=== PATIENT | female | born 1985 | race Caucasian/White ===

== ENCOUNTER 2021-06-27 20:33 | Emergency (ER) | payer OTHER, SELFPAY ==
--- NOTE | ~2021-06-27 | XR_ITS ---
EXAMINATION: XR femur RT min 2V DATE: 06/27/2021 23:56 INDICATION: Right thigh pain. TECHNIQUE: 2 views of right femur on 4 radiographs were obtained. COMPARISON: None. FINDINGS: Bone alignment is normal. No fracture. There is patchy and serpiginous sclerosis in distal femur and proximal tibia. Joint spaces are normal. There are surgical clips in right inguinal region. No knee joint effusion. IMPRESSION: 1. Sclerosis in distal femur and proximal tibia, consistent with osteonecrosis. Reviewed, dictated and finalized at location A.
--- NOTE | ~2021-06-27 | XR_ITS ---
EXAMINATION: XR knee RT min 4V DATE: 06/27/2021 23:56 INDICATION: Right knee pain. TECHNIQUE: 4 views of right knee were obtained. COMPARISON: None. FINDINGS: Bone alignment is normal. No fracture. There is patchy and serpiginous sclerosis in distal femur and proximal tibia. Joint spaces are normal. No knee joint effusion. IMPRESSION: 1. Sclerosis in distal femur and proximal tibia, consistent with osteonecrosis. Reviewed, dictated and finalized at location A.
[2021-06-27 21:21] VITALS: BP 147/102; PULSE 106; RESP 18; TEMP 36.1; O2SAT 100
--- NOTE | 2021-06-27 22:46 | ED.EXTPRO ---
HPI - Extremity Problem General Chief complaint: Extremity Problem,Nontraumatic Stated complaint: R. Knee pain Time Seen by Provider: 06/27/21 22:44 Source: patient Mode of arrival: ambulatory Limitations: no limitations History of Present Illness HPI Narrative: The patient is a 35 yo female history of melanoma in the right lower extremity (thigh) and osteonecrosisof the right lower extremity/right knee, presenting for evaluation of right knee pain. Patient denies recent trauma. Pain has been present over past two weeks. Pain is worsened with ambulation. Patient denies redness or swelling. No change in range of motion. Pt denies fever or chills. Pt had melanoma in 2012, treated with interferon. Pt has been told she has necrosis of her knee and will eventually require a knee replacement. Patient was seen by her PCP who prescribed voltran and meloxicam with minimal improvement in her symptoms. Patient does not closely follow with oncology. She has an MRI of her knee scheduled in two weeks. Patient denies fever or chills.No numbness or weakness. Related Data Home Medications Medication Instructions Recorded Confirmed Imitrex 06/27/21 sertraline [Zoloft] mg 06/27/21 Allergies Allergy/AdvReac Type Severity Reaction Status Date / Time No Known Allergies Allergy Verified 06/27/21 22:11 Review of Systems Review of Systems: CONSTITUTIONAL: Denies fever, chills, or sweats. EYES: Denies visual changes, redness, or discharge. ENT: Denies rhinorrhea, congestion, sore throat, or otalgia. CARDIOVASCULAR: Denies chest pain, palpitations, or edema. RESPIRATORY: Denies cough or dyspnea. GASTROINTESTINAL: Denies abdominal pain, nausea, vomiting, or diarrhea. GENITOURINARY: Denies dysuria or hematuria. SKIN: Denies rash or itching. MUSCULOSKELETAL: Denies back pain, reports right knee pain NEUROLOGIC: Denies headache, numbness, or weakness. [facility] Social History Social History (Updated 06/27/21 @ 23:29 by Neelam Lozano MD) Smoking status: Never smoker Alcohol intake: never Substance use: never Living arrangements: with family Gender identity (if verbalized by the patient): Female Exam Narrative: GENERAL: Awake, alert, conversant HEAD: Normocephalic, atraumatic. EYES: PERRLA and EOMI. ENT: Nares clear, no rhinorrhea or epistaxis. Mucous membranes moist. NECK: Supple. CHEST: No respiratory distress, breathing even and non labored HEART: Regular rate, sinus rhythm ABDOMEN:Non distended, non tender EXTREMITIES: Normal range of motion. No edema. Full range of motion of the right knee without limitation. Stable valgus/varus. No tenderness on exam. Patella is non tender. No erythema or induration. No edema. SKIN: Warm, dry, no rash. 10 cm well healed surgical incision, right thigh. NEURO:No focal deficits. Alert and oriented x3 Course Vital Signs Vital signs: Vital Signs Temperature 36.1 C L 06/27/21 21:21 Pulse Rate 106 H 06/27/21 21:21 Respiratory Rate 18 06/27/21 21:21 Blood Pressure 147/102 H 06/27/21 21:21 Pulse Oximetry 100 06/27/21 21:21 Temperature 36.1 C L 06/27/21 21:21 Pulse Rate 79 06/28/21 01:21 Respiratory Rate 16 06/28/21 01:21 Blood Pressure 118/90 06/28/21 01:21 Pulse Oximetry 97 06/28/21 01:21 MDM - Extremity (Nontraumatic) MDM Narrative Medical decision making narrative: Patient presenting for evaluation of gradually worsening, atraumatic right knee pain. Patient has full active range of motion without limitation. No erythema or induration. No infectious type symptoms based on exam. Septic arthritis seems very unlikely given no systemic symptoms, no fever, normal range of motion. IV access obtained and labs are drawn. X-ray with evidence of chronic scarring, osteonecrosis. Patient without evidence of mass or fracture. No lucencies seen on radiographic imaging patient has mild leukocytosis. No electrolyte derangement. Very slight elevation in ESR with
[2021-06-28 01:21] VITALS: BP 118/90; PULSE 79; RESP 16; O2SAT 97
[2021-06-28 01:31] LABS: Basophils Percent Auto 0.4 % (0.2-1.2); Eosinophils Absolute Auto 0.6 K/mm3 (0-0.3); Eosinophils Percent Auto 5.6 % (0-4.4); Hematocrit 42.3 % (37.0-47.0); Hemoglobin 14.4 g/dL (12.0-15.0); Immature Granulocyte Absolute 0.03 K/mm3 (0.00-0.031); Immature Granulocyte Percent A 0.3 % (0-0.5); Lymphocytes Absolute Auto 6.16 K/mm3 (0.9-3.2); Lymphocytes Percent Auto 55.8 % (18.3-44.2); Mean Corpuscular Volume 96.8 fl (80-100); Mean Platelet Volume 10.7 fl (7.4-10.4); Monocytes Absolute Auto 1.1 K/mm3 (0.1-0.6); Monocytes Percent Auto 10.2 % (2.6-8.5); Neutrophils Absolute Auto 3.1 K/mm3 (1.3-6.7); Neutrophils Percent Auto 27.7 % (45.5-73.1); Platelet Count Result 330 k/mm3 (150-375); Red Blood Count 4.37 M/mm3 (4.2-5.4); Red Cell Distribution Width 13.7 % (11.5-14.5)
[2021-06-28 01:41] LABS: Alkaline Phosphatase 83 U/L (38-126); Anion Gap 9 mmol/L (8-16); Blood Urea Nitrogen 12 mg/dL (7-17); Calcium 9.1 mg/dL (8.4-10.2); Carbon Dioxide 26 mmol/L (22-30); Chloride 104 mmol/L (98-107); Estimated CRCL calculation 101 ml/min; Estimated Glomerular Filt Rate > 60; Glucose 87 mg/dL (65-110); Lactate Dehydrogenase 365 U/L (313-618); Potassium 4.1 mmol/L (3.4-5.0); Sodium 139 mmol/L (137-145)
[2021-06-28 01:43] LABS: CRP < 0.5 mg/dL (<1.0)
[2021-06-28 01:46] LABS: D Dimer 0.64 ug/mL (<0.48)
[2021-06-28 02:13] LABS: Erythrocyte Sedimentation Rate 24 mm/hr (0-20)
[2021-06-28 03:05] VITALS: BP 132/92; PULSE 74; RESP 16; O2SAT 99
[2021-06-28] MEDS: ENOXAPARIN 100 MG/ML SYRINGE 90 MG SUB-Q (03:05)
== END 2021-06-28 03:15 | disposition home or self-care (01) ==
PROVIDERS: Emergency Provider Emergency Medicine
DX: M25.561 Pain in right knee (principal); R79.1 Abnormal coagulation profile; Z85.820 Personal history of malignant melanoma of skin; M87.9 Osteonecrosis, unspecified
CPT/HCPCS: 36415; 73552; 73564; 80048; 83615; 84075; 85025; 85380; 85652; 86140; 96372; 99284; J1650

== ENCOUNTER 2021-06-28 07:25 | Outpatient (CLI) | payer OTHER, SELFPAY ==
--- NOTE | ~2021-06-28 | US_ITS ---
EXAMINATION: US venous doppler LE RT EXAM DATE: 06/28/2021 07:56 INDICATION: Elevated D Dimer,RLE Pain TECHNIQUE: Multiple grayscale, color flow and Doppler images of the right lower extremity deep venous system were obtained and reviewed. There is no prior study for comparison. FINDINGS: The right common femoral, femoral and profunda veins demonstrate normal color flow, respira tory variation, augmentation and compressibility. Compressibility, color flow confirmed within the r ight popliteal, posterior tibial, peroneal, and greater saphenous veins. IMPRESSION: 1. No right lower extremity deep venous thrombosis. Reviewed, dictated and finalized at location A.
== END 2021-06-28 07:26 | disposition home or self-care (01) ==
PROVIDERS: Visit Provider Emergency Medicine
DX: M79.661 Pain in right lower leg (principal)
CPT/HCPCS: 93971